=== PATIENT | female | born 1950 | race Caucasian/White ===

== ENCOUNTER → 2016-08-27 | Outpatient (CLI) | payer MEDICARE ==
--- NOTE | 2016-08-27 16:39 | MR ---
MRI CERVICAL SPINE: CLINICAL HISTORY: Right-sided Cervical spine radiculopathy per order. Neck and right upper extremity pain and numbness per order. TECHNIQUE: Multiplanar, multisequence imaging of the cervical spine is performed without IV contrast. COMPARISON: None. FINDINGS: Sagittal images of the cervical spine show the craniocervical junction to appear within nor mal limits. The cervical and upper thoracic spinal cord is normal in course, caliber, and signal. V ertebral alignment is anatomic. The vertebral body heights are normal. There is mild to moderate mul tilevel disc space narrowing most prominent at C4-C5 through C6-C7 levels. Moderate multilevel spurri ng is seen most prominent anteriorly. Posterior disc herniation and spur disc complexes are effacing anterior thecal sac at C3-C4 through C6-C7 level. There are heterogeneous endplate changes most promi nent left C5-C6 level on sagittal image 5 with increased T1 and T2 signal consistent with Modic type II degenerative change. Axial images show the C2-C3 level to appear within normal limits. Axial images at C3-C4 level show posterior spur disc complex effacing bilateral anterolateral thecal sac and causing severe right and moderate appear left-sided neural foraminal narrowing near axial aziza ge 47. Axial images at C4-C5 level show uncovertebral facet degenerative changes with posterior broad disc b ulge effacing anterior thecal sac and causing advanced left and moderate to advanced right-sided neur al foraminal narrowing. Axial images at C5-C6 level show broad-based left paracentral spur disc complex effacing anterolatera l thecal sac and causing advanced left-sided neural foraminal narrowing on axial image 31. Some ossif ic fusion at this level may be present. Right-sided neural foramen is patent. Axial images at C6-C7 level show broad-based left paracentral/foraminal disc protrusion effacing ante rolateral thecal sac and causing moderate to advanced left-sided neural foraminal narrowing. There is mild to moderate right-sided neural foraminal narrowing at this level identified. Axial images at C7-T1 level shows left paracentral disc protrusion mildly effacing anterior thecal sa c, bilateral neural foramina are felt patent. IMPRESSION: Multilevel degenerative changes in the cervical spine as detailed above with most pronoun francie findings C3-C4 through C6-C7 level noted.
== END | disposition home or self-care (01) ==
LOC: RADMRIMAIN 15:03
PROVIDERS: ATTEND Family Medicine
DX: M47.22 Other spondylosis with radiculopathy, cervical region (principal)
CPT/HCPCS: 72141

== ENCOUNTER → 2017-04-20 | Outpatient (CLI) | payer MEDICARE ==
--- NOTE | 2017-04-20 14:18 | MM ---
Reason for exam: screening (asymptomatic). Last mammogram was performed 1 year and 2 months ago. History: Patient is postmenopausal. Physical Findings: A clinical breast exam by your physician is recommended on an annual basis and results should be correlated with mammographic findings. MG Screening Mammo w CAD Bilateral CC and MLO view(s) were taken. Prior study comparison: February 04, 2016, bilateral MG screening mammo w CAD. January 25, 2014, bilateral MG screening mammo w CAD. There are scattered fibroglandular densities. There is no discrete abnormality. No significant changes when compared with prior studies. ASSESSMENT: Negative, BI-RAD 1 RECOMMENDATION: Routine screening mammogram of both breasts in 1 year.
--- NOTE | 2017-04-21 09:03 | BD ---
EXAMINATION TYPE: MG DEXA axial skeleton. DATE OF EXAM: 04/20/2017 COMPARISON: NONE CLINICAL HISTORY: Z13.820 osteoporosis Height: 5 FT 8 IN Weight: 237 FRAX RISK QUESTIONS: Alcohol (3 or more units per day): NO Family History (Parent hip fracture): NO Glucocorticoids (More than 3mos): NO (Ex: prednisone, prednisolone, methylprednisolone, dexamethasone, and hydrocortisone). History of Fracture in Adulthood: NO Secondary Osteoporosis: 1. Type 1 Diabetes: NO 2. Hyperthyroidism: NO 3. Menopause before 45: NO 4. Malnutrition: NO 5. Chronic liver disease: NO Rheumatoid Arthritis: NO Current Tobacco Use: NO RISK FACTORS HISTORY OF: Active: NO Postmenopausal woman: AGE 49 Take estrogen and/or progesterone medications: NO LONGER How long: TOOK FOR 3 YEARS MEDICATIONS: Thyroid Medications: YES Which medication: LEVOTHYROXINE How Long: OVER 10 YEARS Additional Medications: PREVACHOL,LEVOTHYROXINE, BENICAR , Additional History: EXAM MEASUREMENTS: Bone mineral densitometry was performed using the [employer] System. Bone mineral density as measured about the Lumbar spine is: ----- L1-L4(G/cm2): 1.697 T Score Values are as follows: ----- L2: 3.8 ----- L3: 4.1 ----- L4: 5.7 ----- L1-L4: 4.3 Bone mineral density has: INCREASED 5.0 % since study of: 2011 Bone mineral density about the R hip (g/cm2): 0.983 Bone mineral density about the L hip (g/cm2): 0.915 T Score values are as follows: -----R Neck: -0.4 -----L Neck: -0.9 -----R Total: 0.3 -----L Total: 0.7 Bone mineral density has: DECREASED -3.2 % since study of: 2011 IMPRESSION: No evidence for osteoporosis or osteopenia. NOTE: T-SCORE=SD OF THE YOUNG ADULT MEAN.
== END | disposition home or self-care (01) ==
LOC: RADMAMWWP 08:11
PROVIDERS: ATTEND Obstetrics & Gynecology
DX: Z12.31 Encounter for screening mammogram for malignant neoplasm of breast (principal); Z13.820 Encounter for screening for osteoporosis
CPT/HCPCS: 77067; 77080

== ENCOUNTER → 2018-09-25 | Outpatient (CLI) | payer MEDICARE ==
--- NOTE | 2018-09-26 11:04 | MM ---
Reason for exam: screening (asymptomatic). Last mammogram was performed 1 year and 5 months ago. History: Patient is postmenopausal. Physical Findings: A clinical breast exam by your physician is recommended on an annual basis and results should be correlated with mammographic findings. MG Screening Mammo w CAD Bilateral CC and MLO view(s) were taken. Prior study comparison: April 20, 2017, bilateral MG screening mammo w CAD. February 04, 2016, bilateral MG screening mammo w CAD. The breast tissue is almost entirely fat. No significant changes when compared with prior studies. ASSESSMENT: Negative, BI-RAD 1 RECOMMENDATION: Routine screening mammogram of both breasts in 1 year.
== END | disposition home or self-care (01) ==
LOC: RADMAMWWP 15:27
PROVIDERS: ATTEND Obstetrics & Gynecology
DX: Z12.31 Encounter for screening mammogram for malignant neoplasm of breast (principal)
CPT/HCPCS: 77067

== ENCOUNTER → 2020-11-10 | Outpatient (CLI) | payer MEDICARE | END | disposition home or self-care (01) | LOC: LABPAT 14:30 | PROVIDERS: ATTEND Orthopaedic Surgery | DX: Z01.812 Encounter for preprocedural laboratory examination (principal); M16.11 Unilateral primary osteoarthritis, right hip; Z22.322 Carrier or suspected carrier of Methicillin resistant Staphylococcus aureus | CPT/HCPCS: 87070 ==

== ENCOUNTER 2020-11-17 08:43 | Day surgery (SDC) | payer MEDICARE ==
[2020-11-12 14:27] VITALS: BMI 34.7
--- NOTE | 2020-11-16 12:25 | HP ---
HISTORY AND PHYSICAL REASON FOR ADMISSION: Surgery 11/17/2020 HISTORY OF PRESENT ILLNESS: Jana Mejia is a 69-year-old patient seen with symptomatic right hip osteoarthritis. We discussed options for treatment. She elected to proceed with direct anterior right total hip arthroplasty. Consent was obtained, clearance was provided by Dr. Luis Alberto Dang. PAST MEDICAL HISTORY: Hypertension, hyperlipidemia. PAST SURGICAL HISTORY: Tubal ligation. MEDICATIONS: Pravastatin, omeprazole, levothyroxine. ALLERGIES: PENICILLIN. SOCIAL HISTORY: She denies tobacco use. PHYSICAL EXAMINATION: Evaluation of the right hip: Diffuse tenderness. Limited range of motion. Severe pain. Positive hip impingement sign. Straight leg raise negative. Distal neurovascular exam is intact. RADIOGRAPHS: Right hip radiographs revealed severe osteoarthritic changes. IMPRESSION: 1. Right hip osteoarthritis. 2. Hypertension. 3. Hyperlipidemia. 4. Hypothyroidism. PLAN: Direct anterior right total hip arthroplasty. Surgery scheduled for 11/17/2020. MMODL / IJN: [id number] /
[~2020-11-17 08:43] MED LIST: ACETAMINOPHEN TAB 500 MG TAB PO PRN; DEXAMETHASONE SOD PHOSPHATE 4 MG/ML 1 ML VIAL IV ONE; HYDROmorphone 0.5 MG/0.5 ML SYRINGE IVP PRN; LACTATED RINGERS 1,000 ML IV SCH; LIDOCAINE 1% (10MG/ML) FOR IV START INTRADERMA PRN; MELOXICAM 7.5 MG TAB PO PRN; MIDAZOLAM 2 MG/2 ML VIAL IV PRN; ONDANSETRON 4 MG/2 ML VIAL IVP ONE; ROPIVACAINE/EPI/CLONIDINE/KET 50 ML SYRINGE MISCELLANE PRN; TRANEXAMIC ACID 1,000 MG in SODIUM CHLORIDE 0.9% 100 ML IVPB PRN
[2020-11-17] MEDS ORDERED: SODIUM CHLORIDE 0.9% 100 ML BAG ONE (10:03)
[2020-11-17] MEDS ORDERED: fentaNYL (PF) 50 MCG/ML 2 ML AMP ONE (10:03)
[2020-11-17] MEDS ORDERED: MIDAZOLAM 2 MG/2 ML VIAL ONE (10:03)
[2020-11-17] MEDS ORDERED: PROPOFOL 10 MG/ML 20 ML VIAL IV ONE (10:03)
[2020-11-17] MEDS ORDERED: TRANEXAMIC ACID 1,000 MG/10 ML VIAL ONE (10:03)
[2020-11-17] MEDS ORDERED: KETOROLAC 15 MG/ML 1 ML VIAL ONE (10:03)
[2020-11-17] MEDS ORDERED: KETAMINE 10 MG/ML 20 ML VIAL ONE (10:03)
[2020-11-17] MEDS ORDERED: ceFAZolin 1,000 MG in SODIUM CHLORIDE 0.9% 1,000 ML IRRIGATION ONE (10:36)
[2020-11-17] MEDS ORDERED: HYDROmorphone 0.5 MG/0.5 ML SYRINGE IVP PRN ×2 (11:36)
[2020-11-17] MEDS ORDERED: hydrOXYzine pamoate 25 MG CAP PO PRN (11:36)
[2020-11-17] MEDS ORDERED: NALOXONE 0.4 MG/ML 1 ML VIAL IV PRN (11:36)
[2020-11-17] MEDS ORDERED: HYDROmorphone 0.2 MG/1 ML SYRINGE IVP PRN (11:36)
[2020-11-17] MEDS ORDERED: ONDANSETRON 4 MG/2 ML VIAL IVP PRN (11:36)
[2020-11-17] MEDS ORDERED: HYDROcodone/APAP 5-325MG 1 EACH TAB PO PRN (11:36)
--- NOTE | 2020-11-17 11:36 | P.OP ---
Date of Procedure: 11/17/20 Preoperative Diagnosis: Right hip osteoarthritis Postoperative Diagnosis: Right hip osteoarthritis Procedure(s) Performed: Direct anterior right total hip arthroplasty Implants: 1. Depuy Corail KA size 11 standard collar press-fit femoral stem 2. Depuy pinnacle 58 mm multiple hole press-fit acetabular shell 3. Depuy pinnacle neutral polyethylene acetabular liner 36 mm ID 58 mm OD 4. Biolox delta ceramic femoral head 8.5 36 mm Anesthesia: local, spinal Surgeon: Chris Carrasco Supervisor Spring Up #1: Howie Beltrán Estimated Blood Loss (ml): 95 Pathology: other (Femoral head) Condition: stable Disposition: PACU Indications for Procedure: 69-year-old patient seen with symptomatic right hip osteoarthritis. After treatment options were discussed, she elected to proceed with direct anterior right total hip arthroplasty Operative Findings: See description of procedure Description of Procedure: The patient was taken to the operative suite. Patient underwent a spinal a nesthetic by the department of anesthesia. Patient was then transferred to the [place] table. Patient was given preoperative IV antibiotics and TXA. Both lower extremities were placed in standard leg spars. The hip was then prepped and draped in the normal sterile orthopedic fashion. A standard anterior incision was made beginning 3 cm lateral and 1 cm distal to the ASIS extending 10 cm. Dissection was then carried down through the subcutaneous soft tissues down to the fascia overlying the tensor fascia marty. An incision was now made through the fascia. Careful dissection was taken down exposing the tensor fascia marty muscle. A Cobra retractor was now placed along the medial femoral neck and a second one along the lateral femoral neck. The venous circumflex vessels were now identified, cauterized and clipped. We identified the anterior hip capsule. An incision was made through the hip capsule along the lateral border. I performed a partial anterior capsulectomy. Retractors were now placed around the femoral neck itself. A femoral neck cut was now made with a sagittal saw. It was completed with an osteotome at the lateral neck area. The femoral head was now removed without difficulty. The extremity was now rotated to 60 of external rotation. It was locked in position. Residual labrum was now debrided out. Serial reaming was performed of the acetabulum while Jason FOX assisted holding an anterior retractor for exposure. Once we reached the appropriate size and a trial was position and fit nicely. The appropriate size was now chosen opened and made available. It was introduced into the acetabulum without difficulty. The C-arm/fluoroscopy was now brought into the operative field. We made sure we had a true AP pelvic view. We now under direct C- arm/fluoroscopy introduced into the acetabular component with appropriate version and inclination. I held the cup in appropriate position well Jason FOX used a mallet to seat the acetabular component. I noted the component now to be well seated and stable. Acetabular cup introduce her was removed. The C-arm was pulled back. An appropriate liner was introduced and clicked into position. It was felt to be stable. At this point retractors were removed. The extremity was now placed into 140 external rotation with no traction. The leg was now dropped to the ground and adducted. Appropriate retractors were now positioned along the proximal femur. We also placed our femoral look into position. Additional capsular releasing was performed to gain access to the proximal femur. We now used a box osteotome. A canal finder was now utilized. Serial broaching was now performed with the assistance of Jason FOX tapping the broaches down with a mallet while held the broach in appropriate rotation and position. This was done until we reached the appropriate size with good overall rotational stability. Appropriate calcar planing was performed. A trial head/neck was placed into position. The hip was now reduced. The C- arm/fluoroscopy was brought back into the operative field. I obtained an AP pelvis demonstrating reasonable leg length alignment. The trial components appear to be adequately sized and positioned The C-arm/fluoroscopy was pulled back. Retractors were repositioned and the hip was dislocated. The leg was again taken down to the ground and adducted. Appropriate retractors were repositioned as well as the femoral hook. All trial components were removed. The femoral implant was opened along with the femoral head. The femoral implant was introduced on the appropriate handle into our pre-broached area. I held the component position well Jason FOX used a mallet to seat the femoral component. The femoral component was now noted to be well seated and stable. The femoral head was introduced with good positioning and fixation noted. Retractors were now removed. The hip was now reduced. There appeared be good positioning of the hip confirmed on intraoperative fluoroscopy. Spot films were obtained to document this. A second gram of TXA was given. The deep and superficial soft tissues were infiltrated with local analgesic. Bipolar cautery had been utilized intermittently through the procedure for hemostasis. The wound was irrigated copiously with pulse lavage mechanical irrigation. The fascia was repaired with Vicryl suture. The subcutaneous soft tissues were repaired in layers with Vicryl suture. The skin was approximated with pernio/Dermabond. Sterile dressings were applied. Patient was then awakened, transferred to a bed and taken to recovery in stable condition. Jason FOX assisted with the complex procedure.
[2020-11-17] MEDS ORDERED: LACTATED RINGERS 1,000 ML IV ONE (11:37)
--- NOTE | 2020-11-17 12:03 | XR ---
Fluoroscopy INDICATION: Pain FINDINGS: Fluoroscopy time: Not recorded Images obtained: 1. IMPRESSIONS: 1. Documentation of fluoroscopy.
--- NOTE | 2020-11-17 12:24 | FL ---
Fluoroscopy INDICATION: Pain FINDINGS: Fluoroscopy time: 24 seconds. Images obtained: 0. IMPRESSIONS: 1. Documentation of fluoroscopy.
[2020-11-17] MEDS: LACTATED RINGERS 1,000 ML IV SCH (17:09)
[2020-11-17] MEDS: HYDROcodone/APAP 5-325MG 1 EACH TAB PO PRN ×2 (17:59→23:53)
[2020-11-17 19:23] VITALS: PULSE 58
[2020-11-17 19:28] LABS: Glucose,Whole Blood 232 mg/dL (75-99)
[2020-11-17] MEDS ORDERED: SENNOSIDES-DOCUSATE SODIUM 1 EACH TAB PO SCH (21:00)
[2020-11-17] MEDS ORDERED: SODIUM CHLORIDE 0.9% 1,000 ML IV SCH (21:30)
[2020-11-17] MEDS ORDERED: SODIUM CHLORIDE 0.9% 500 ML 250 ML IV ONE (22:38)
[2020-11-18] MEDS: LACTATED RINGERS 1,000 ML IV SCH (02:54)
[2020-11-18] MEDS ORDERED: LEVOTHYROXINE 75 MCG TAB PO SCH (06:30)
[2020-11-18 08:02] VITALS: BP 113/73; RESP 16; TEMP 97.6
[2020-11-18] MEDS ORDERED: MELOXICAM 7.5 MG TAB PO SCH (09:00)
[2020-11-18] MEDS ORDERED: ENOXAPARIN 40 MG/0.4 ML SYRINGE SQ SCH (09:00)
[2020-11-18] MEDS ORDERED: FAMOTIDINE 20 MG TAB PO SCH (09:00)
[2020-11-18] MEDS: HYDROcodone/APAP 5-325MG 1 EACH TAB PO PRN (09:04)
--- NOTE | 2020-11-18 10:47 | P.DS ---
Providers Date of admission: 11/17/2020 Expected date of discharge: 11/18/20 Attending physician: Chris Carrasco Consults: 11/17/20 11:36 Consult Physician Routine Consulting Provider: Luis Alberto Dang Reason/Comments: Medical management Do you want consulting provider notified?: Yes Primary care physician: Luis Alberto Dang Hospital Course: Date of admission: 11/17/2020 Date of discharge: 11/18/2020 Admission diagnosis: Right hip osteoarthritis Discharge diagnosis: Same Attending physician: Dr. Carrasco Surgical procedures: Right total hip arthroplasty Brief history: Patient is a 69-year-old female with a history of progressive primary right hip osteoarthritis. At this point patient has failed conservative treatment measures and has opted to proceed with a elective right total hip arthroplasty. Hospital course: Details of patient's surgery can be found in operative report. Patient tolerated the procedure well and was subsequently transported to orthopedic floor. Patient's orthopeidc and medical care was provided daily. Patient had daily laboratory tests performed for evaluation of overall blood counts. Patient had daily physical therapy to include strengthening range of motion as well as education with walker ambulation. Patient was treated with Lovenox for their postoperative DVT prophylaxis during their inpatient stay. Patient was noted to have a relatively uneventful postoperative course. Patient reported satisfactory pain control with oral pain medications by postoperative day 1. Patient showed satisfactory progress with physical therapy. Patient moved steadily through the program and had no difficulty meeting the goals by postoperative day 1. Given patient's otherwise satisfactory course and having met physical therapy goals, plan is to discharge patient home on postoperative day 1. Discharge condition/disposition: Patient will be discharged home in stable condition. Discharge medications: Instructions are given on resumption of patient's normal daily medications per primary care recommendation, in addition patient will be prescribed Union 5 mg/325 mg; Lyrica 75 mg; aspirin 81 mg twice a day. Discharge instructions: 1. Wound care and infection precautions, keep incision dry and covered while showering, no lotions, creams, moisturizers. No soaking, tubs, pools, hottubs. Do not scrub over the incision. 2. Weight-bear as tolerated with walker / cane until follow-up. 3. Ice and elevate when necessary. Do not exceed 20 minutes per hour with ice pack. 4. Utilize compression sleeve until seen at first follow up appointment. 5. Visiting nursing care. 6. Home physical therapy. 7. Pain meds and anticoagulants per prescription. 8. Pain medication has potential to cause constipation. Increase oral fluid and fiber intake. Contact primary care provider if you have not had a bowel movement within 48 hours after discharge 9. No anti-inflammatory medication until discussed at first post operative visit, this including Motrin, Aleve, Mobic, Diclofenac. 10. Follow up in office at 2 weeks postop with Jason Beltrán PA-C / Daniel Tirado PA-C 11. Follow up with your primary care doctor 7-10 days after discharge. 12. Contact [facility] with any questions, . Assessment: Right hip osteoarthritis Procedures: Right total hip arthroplasty Patient Condition at Discharge: Good Plan - Discharge Summary Discharge Rx Participant: Yes New Discharge Prescriptions: New Sennosides-Docusate Sodium [Senokot-S] 2 each PO HS tab Aspirin [Adult Low Dose Aspirin EC] 81 mg PO BID #60 tablet. Pregabalin [Lyrica] 75 mg PO BID #21 cap HYDROcodone/APAP 5-325MG [Union 5-325] 1 tab PO Q6HR PRN #21 tab PRN Reason: Pain Continue Levothyroxine Sodium [Synthroid] 75 mcg PO DAILY Olmesartan/Hydrochlorothiazide [Benicar Hct 20-12.5 mg Tablet] 1 each PO 1000 #0 No Action Pravastatin Sodium [Pravachol] 40 mg PO HS Discharge Medication List Levothyroxine Sodium [Synthroid] 75 mcg PO DAILY 11/12/20 [History] Pravastatin Sodium [Pravachol] 40 mg PO HS 11/12/20 [History] Aspirin [Adult Low Dose Aspirin EC] 81 mg PO BID #60 tablet. 11/18/20 [Rx] HYDROcodone/APAP 5-325MG [Union 5-325] 1 tab PO Q6HR PRN #21 tab 11/18/20 [Rx] Olmesartan/Hydrochlorothiazide [Benicar Hct 20-12.5 mg Tablet] 1 each PO 1000 #0 11/18/20 [Rx] Pregabalin [Lyrica] 75 mg PO BID #21 cap 11/18/20 [Rx] Sennosides-Docusate Sodium [Senokot-S] 2 each PO HS tab 11/18/20 [Rx] Follow up Appointment(s)/Referral(s): [facility], [NON-STAFF] - As Needed Luis Alberto Dang DO [Primary Care Provider] - 1 Week Howie Beltrán PAC [PHYSICIAN FORENSIC TECHNICIAN] - 12/03/20 3:10 pm Activity/Diet/Wound Care/Special Instructions: Orthopedic Discharge Instructions: 1. Wound care and infection precautions, keep incision dry and covered while showering, no lotions, creams, moisturizers. No soaking, pools, hot tubs. Do not scrub over incision. 2. Weight-bear as tolerated with walker / cane until follow-up. 3. Ice and elevate when necessary. Do not exceed 20 minutes per hour with ice pack. 4. Utilize compression sleeve until seen at first follow up appointment. 5. Pain meds and anticoagulants per prescription. 6. Pain medication has potential to cause constipation. Increase oral fluid and fiber intake. Contact primary care provider if you have not had a bowel movement within 48 hours after discharge. 7. No anti-inflammatory medication until discussed at first post operative visit, this including Motrin, Aleve, Mobic, Diclofenac. 8. Follow up in office at 2 weeks postop with Jason Beltrán PA-C / Daniel Tirado PA-C 9. Follow up with your primary care doctor 7-10 days after discharge. 10. Contact [facility] with any questions, . Discharge Disposition: HOME WITH HOME HEALTH SERVICES
[2020-11-18 11:11] LABS: Basophils # (A) 0.01 X 10*3/uL (0.00-0.10); Basophils % (A) 0.1 %; Eosinophils # (A) 0.02 X 10*3/uL (0.04-0.35); Eosinophils % (A) 0.2 %; Lymphocytes # (A) 1.29 X 10*3/uL (0.90-5.00); Lymphocytes % (A) 10.3 %; MCH 31.2 pg (27.0-32.0); MCHC 32.4 g/dL (32.0-37.0); MCV 96.3 fL (80.0-97.0); Mean Platelet Volume 10.2 fL (9.5-12.2); Monocytes # (A) 1.09 X 10*3/uL (0.20-1.00); Monocytes % (A) 8.7 %; Neutrophils # (A) 10.01 X 10*3/uL (1.80-7.70); Neutrophils % (A) 80.2 %; Platelet Count 233 X 10*3/uL (140-440); RBC 3.53 X 10*6/uL (4.10-5.20); RDW 13.1 % (11.5-14.5); WBC 12.48 X 10*3/uL (4.50-10.00)
--- NOTE | 2020-11-18 12:54 | P.PN ---
Subjective Progress Note Date: 11/18/20 Principal diagnosis: Right hip osteoarthritis Patient seen at bedside this morning. Patient was seen resting in chair with legs elevated. Patient says she is in minimal pain in this morning. She says she worked with physical therapy; she said she was able to walk on the hallway and up-and-down a couple steps. Patient says she has not had bowel movement yet, however, she has been passing gas. Patient denies chest pain, fever, shortness of breath, nausea, vomiting, change in vision, loss of bowel/bladder control. Objective - Vital Signs Vital signs: Vital Signs Temp 97.6 F 11/18/20 08:00 Pulse 58 L 11/18/20 08:00 Resp 16 11/18/20 08:00 BP 113/73 11/18/20 08:00 Pulse Ox 95 11/18/20 08:00 Intake & Output 11/17/20 11/18/20 11/18/20 18:59 06:59 18:59 Intake Total 1411 Output Total 95 Balance 1316 Weight 105 kg Intake: IV 1251 Intake, IV Titration 160 Amount Lactated Ringers 1,000 ml 160 @ 80 mls/hr IV .[id number] [facility] Rx#:[id number] Output: Estimated Blood Loss 95 Other: Voiding Method Toilet Toilet - Exam Right hip: Incision is clean, dry, and intact. The silver foam tape is in good condition. There is minimal soft tissue swelling and ecchymosis surrounding the medial and lateral aspects of the incision. Calf is soft, no tenderness with palpation. Plantar flexion, dorsiflexion, EHL, FHL are intact. Sensory exam to light touch throughout the extremity is intact, dorsal pedis pulses 2+. - Labs CBC & Chem 7: 11/18/20 06:51 Labs: Abnormal Lab Results - Last 24 Hours (Table) 11/17/20 11/18/20 Range/Units 19:26 06:51 WBC 12.48 H (4.50-10.00) X 10*3/uL RBC 3.53 L (4.10-5.20) X 10*6/uL Hgb 11.0 L (12.0-15.0) g/dL Hct 34.0 L (37.2-46.3) % Immature Gran # 0.06 H (0.00-0.04) X 10*3/uL Neutrophils # 10.01 H (1.80-7.70) X 10*3/uL Monocytes # 1.09 H (0.20-1.00) X 10*3/uL Eosinophils # 0.02 L (0.04-0.35) X 10*3/uL POC Glucose (mg/dL) 232 H (75-99) mg/dL Assessment and Plan Assessment: Right hip osteoarthritis Plan: 1. Right hip osteoarthritis - right total hip arthroplasty performed yesterday, 11/17/2020. Patient stable this morning; plan for discharge home today 2. Appreciate medical management 3. Pain management - stable at this time. Going home with Larslan 5 mg/325 mg and Lyrica 75 mg 4. GI prophylaxis/ DVT prophylaxis - senna; lovenox; patient going home with aspirin 81 mg BID x 30 days 5. Encourage incentive spirometer use 6. PT/OT - weightbearing as tolerated with walker for assistance 7. Discharge planning - discharge home today Time with Patient: Less than 30
--- NOTE | 2020-11-18 15:20 | P.CONS ---
History of Present Illness - Reason for Consult Consult date: 11/18/20 Medical management HTN,GERDS Requesting physician: Chris Carrasco - Chief Complaint Right hip osteoarthritis - History of Present Illness This is 69-year-old female with past medical history of hypertension, gastroesophageal reflux disease, hypothyroidism ,right hip osteoarthritis, failed conservative treatment, status post elective right total hip arthroplasty. Tolerated procedure well. Last night stood up by herself, became lightheaded, nauseated, pale, with borderline hypotension. Received a 250 MLS bolus of saline, antihypertensives held, symptoms resolved. Vital signs stable this morning. Positive diet intake with no nausea or vomiting. Passing flatus. Pain controlled. Denies cough congestion, or chest pain. Vital signs stable. PT pending. Labs pending. Review of Systems ROS Statement: Those systems with pertinent positive or pertinent negative responses have been documented in the HPI. ROS Other: All systems not noted in ROS Statement are negative. Past Medical History Past Medical History: GERD/Reflux, Hyperlipidemia, Hypertension, Osteoarthritis (OA), Skin Disorder, Thyroid Disorder Additional Past Medical History / Comment(s): hx migraines, rosacea, History of Any Multi-Drug Resistant Organisms: None Reported Past Surgical History: Tubal Ligation Additional Past Surgical History / Comment(s): D&C x2, 2 growths removed from e yelid, Past Anesthesia/Blood Transfusion Reactions: No Reported Reaction Past Psychological History: No Psychological Hx Reported Smoking Status: Never smoker Past Alcohol Use History: None Reported Past Drug Use History: None Reported - Past Family History Mother Family Medical History: Cancer Additional Family Medical History / Comment(s): brain Brother(s) Family Medical History: Cancer Additional Family Medical History / Comment(s): brain,bladder Medications and Allergies Home Medications Medication Instructions Recorded Confirmed Type Levothyroxine Sodium [Synthroid] 75 mcg PO DAILY 11/12/20 11/12/20 History Pravastatin Sodium [Pravachol] 40 mg PO HS 11/12/20 11/12/20 History Aspirin [Adult Low Dose Aspirin EC] 81 mg PO BID #60 tablet. 11/18/20 Rx HYDROcodone/APAP 5-325MG [[place] 1 tab PO Q6HR PRN #21 tab 11/18/20 Rx 5-325] Olmesartan/Hydrochlorothiazide 1 each PO 1000 #0 11/18/20 11/12/20 Rx [Benicar Hct 20-12.5 mg Tablet] Pregabalin [Lyrica] 75 mg PO BID 14 Days #21 cap 11/18/20 Rx Sennosides-Docusate Sodium 2 each PO HS tab 11/18/20 Rx [Senokot-S] Allergies Allergy/AdvReac Type Severity Reaction Status Date / Time Penicillins Allergy Rash/Hives Verified 11/17/20 09:12 Sulfa (Sulfonamide Allergy eye would Verified 11/17/20 09:12 Antibiotics) not heal with sulfa eye drops Physical Exam Vitals: Vital Signs Temp Pulse Pulse Resp BP BP Pulse Ox 11/18/20 08:00 97.6 F 58 L 16 113/73 95 11/18/20 02:00 97.7 F 58 L 96/59 93 L 11/17/20 19:23 58 L 17 92/56 11/17/20 19:19 97.8 F 58 L 17 88/53 94 L 11/17/20 16:00 98.2 F 60 18 139/84 97 11/17/20 15:04 55 L 16 101/51 94 L 11/17/20 14:00 56 L 16 99/53 94 L 11/17/20 13:30 59 L 16 107/52 94 L 11/17/20 13:01 58 L 16 99/54 94 L 11/17/20 12:30 56 L 16 99/55 94 L 11/17/20 12:15 52 L 16 91/47 95 11/17/20 12:00 57 L 16 92/48 92 L 11/17/20 11:49 97.4 F L 67 16 93/46 92 L 11/17/20 09:22 97.9 F 67 16 141/79 96 Intake and Output 11/17/20 11/18/20 11/18/20 22:59 06:59 14:59 Intake Total 160 Balance 160 Intake: Intake, IV Titration 160 Amount Lactated Ringers 1,000 ml 160 @ 80 mls/hr IV .[id number] [facility] Rx#:[id number] Other: Voiding Method Toilet Weight 105 kg PHYSICAL EXAM: VITAL SIGNS: As above GENERAL: Sitting up in bed, no acute distress HEENT: Conjunctivae normal. eyes normal. Oral mucosa moist NECK: No JVD. No thyroid enlargement. No LNs CARDIOVASCULAR: S1, S2 regular.. No murmur RESPIRATION: Breath sounds diminished in the bases. No rhonchi or crackles. No bronchial breathing. ABDOMEN: Soft, nontender . No guarding. no masses palpable. No ascites, No hepatosplenomegaly.Bowel sounds heard. EXT: Right hip dressing clean dry and intact, mild edema, calf nontender, soft, positive PT and DP pulses PSYCHIATRY: Alert and oriented X3, mood and affect normal. NERVOUS SYSTEM: Cranial N 2-12 grossly normal. Moves all 4 limbs. No focal deficits. Strength and sensation grossly intact. Skin: Warm and dry, no rash Lymphatic system. No LN neck axilla. Results CBC & Chem 7: 11/18/20 06:51 Labs: Abnormal Lab Results - Last 24 Hours (Table) 11/17/20 Range/Units 19:26 POC Glucose (mg/dL) 232 H (75-99) mg/dL Assessment and Plan Assessment: Right hip osteoarthritis, failed conservative treatment, status post right total hip arthroplasty Borderline hypotension, resolved. History of hypertension Hyperlipidemia Gastroesophageal reflux disease Hypothyroidism Plan: Continue current medication regime ,monitoring and symptomatic treatment. Pain management, DVT prophylaxis as per primary. Discharge planning in progress for today. Patient has been instructed to continue holding her Benicar HCT today and resume tomorrow. Maintain Senokot-S. Aggressive pulmonary toileting, incentive spirometer reinforced. Follow-up with PCP in one week. Thank you Dr. Carrasco for the consult. The impression and plan of care has been dictated as directed. : I performed a history and examination of this patient, discussed the same with the dictator. I agree with the dictator's note ,documented as a scribe. Any additional findings or plans will be noted.
[2020-11-18] MEDS ORDERED: PRAVASTATIN SODIUM 40 MG TAB PO SCH (21:00)
== END 2020-11-18 13:07 | disposition home health service (06) ==
LOC: OR 08:43 → 4SSUR 11:49 → OR 11-18 13:07
PROVIDERS: ATTEND Orthopaedic Surgery
DX: M16.11 Unilateral primary osteoarthritis, right hip (principal); E03.9 Hypothyroidism, unspecified; E78.5 Hyperlipidemia, unspecified; I10 Essential (primary) hypertension; K21.9 Gastro-esophageal reflux disease without esophagitis; Z79.899 Other long term (current) drug therapy; Z79.82 Long term (current) use of aspirin; Z88.0 Allergy status to penicillin; Z88.2 Allergy status to sulfonamides
CPT/HCPCS: 27130; 76000; 97161; 86900; 86901; 85025; 86850; 88300; 73501; 36415; J1100; J0690 ×3; J2405; J1650

== ENCOUNTER → 2021-04-01 | Outpatient (CLI) | payer MEDICARE ==
--- NOTE | 2021-04-06 13:34 | MM ---
Reason for exam: screening (asymptomatic). Last mammogram was performed 2 years and 6 months ago. History: Patient is postmenopausal. Physical Findings: A clinical breast exam by your physician is recommended on an annual basis and results should be correlated with mammographic findings. MG Screening Mammo w CAD Bilateral CC and MLO view(s) were taken. Prior study comparison: September 25, 2018, bilateral MG screening mammo w CAD. April 20, 2017, bilateral MG screening mammo w CAD. There are scattered fibroglandular densities. No significant changes when compared with prior studies. ASSESSMENT: Benign, BI-RAD 2 RECOMMENDATION: Routine screening mammogram of both breasts in 1 year.
== END | disposition home or self-care (01) ==
LOC: RADMAMWWP 10:04
PROVIDERS: ATTEND Family Medicine
DX: Z12.31 Encounter for screening mammogram for malignant neoplasm of breast (principal); Z78.0 Asymptomatic menopausal state
CPT/HCPCS: 77067

== ENCOUNTER → 2022-10-21 | Outpatient (CLI) | payer MEDICARE ==
[2022-10-22 02:46] LABS: Albumin 4.6 d/dL (3.8-4.9)
[2022-10-22 03:37] LABS: Cardiolipin Ab IgG Interp Negative (Negative); Cardiolipin Ab IgM Interp Negative (Negative); Cardiolipin IgA Antibody <2.0 U/mL; Cardiolipin IgM Antibody <1.5 U/mL
[2022-10-22 03:46] LABS: Hepatitis B Surface Antigen Nonreactive; Hepatitis C IgG Antibody Nonreactive
[2022-10-22 04:27] LABS: ALT 24 U/L (8-44); AST 21 U/L (13-35); Albumin 4.7 d/dL (3.8-4.9); Albumin/Globulin Ratio 1.96 Ratio (1.60-3.17); Alkaline Phosphatase 62 U/L (41-126); Blood Urea Nitrogen 20.4 mg/dL (9.0-27.0); C Reactive Protein <0.30 mg/dL (0.00-0.80); Calcium 10.6 mg/dL (8.7-10.3); Carbon Dioxide 25.6 mmol/L (21.6-31.8); Chloride 104 mmol/L (96-109); Creatine Kinase 172 U/L (26-186); Globulin 2.4 d/dL (1.6-3.3); Glucose 93 mg/dL (70-110); Potassium 4.3 mmol/L (3.5-5.5); Sodium 141 mmol/L (135-145); Total Bilirubin 0.6 mg/dL (0.3-1.2); Total Protein 7.1 d/dL (6.2-8.2); Uric Acid 5.6 mg/dL (2.9-7.7)
[2022-10-22 04:40] LABS: Cyclic Citrull Pep IgG Unit <1.5 U/mL (<=3.9); Cyclic Citrullinated Pep IgG Negative
[2022-10-22 05:15] LABS: Appearance,Urine Clear (Clear); Bilirubin,Urine Negative (Negative); Blood,Urine Negative (Negative); Color,Urine Yellow (Yellow); Ketones,Urine Negative (Negative); Nitrite,Urine Negative (Negative); PH, Urine 5.5; Specific Gravity,Urine 1.018 (1.001-1.030); Urobilinogen,Urine 0.2 E.U./DL
[2022-10-22 05:32] LABS: Bacteria,Urine 1+ (None Seen)
[2022-10-22 10:06] LABS: HLA B27 NEGATIVE
[2022-10-22 11:14] LABS: Angiotensin-1 Converting Enz. 41 U/L (8-52)
[2022-10-22 11:15] LABS: Aldolase 3.2 U/L (1.2-7.6)
[2022-10-22 11:51] LABS: Histone Antibody 0.2 UNITS (<1.0)
[2022-10-22 11:57] LABS: APTT 43 Sec(s) (<43); Dilute Russell Viper Venom 34 Sec(s) (<44)
[2022-10-22 13:59] LABS: C-ANCA <1:20 Titer (<1:20)
[2022-10-22 18:52] LABS: Gamma Globulin 0.88 d/dL (0.70-1.50)
== END | disposition home or self-care (01) ==
LOC: LABWHC1 14:17
PROVIDERS: ATTEND Internal Medicine Rheumatology
DX: R76.8 Other specified abnormal immunological findings in serum (principal)
CPT/HCPCS: 36415; 80053; 81001; 82085; 82164; 82306; 82550; 83516; 83520; 84165; 84550; 85613; 85652; 85730; 86038; 86140; 86147; 86160; 86200; 86225; 86235; 86255; 86334; 86803; 86812; 87340

== ENCOUNTER 2023-08-29 11:10 | Emergency (ER) | payer MEDICARE ==
--- NOTE | 2023-08-29 11:18 | ED ---
Upper Extremity HPI - General Stated Complaint: Laceration to R middle finger Time Seen by Provider: 08/29/23 11:17 Source: patient Mode of arrival: ambulatory Limitations: no limitations - History of Present Illness Initial Comments: 72-year-old female presented to ER with a chief complaint of finger injury. Patient reports she was working with an industrial sewing machine in her right middle finger accidentally got caught in the track. She reports it is near amputation. She denies any other injuries or complaints. Tetanus status unknown. She is not on blood thinners and reports bleeding is controlled at this time. - Related Data Home Medications Medication Instructions Recorded Confirmed Levothyroxine Sodium [Synthroid] 75 mcg PO DAILY 11/12/20 11/12/20 Pravastatin Sodium [Pravachol] 40 mg PO HS 11/12/20 11/12/20 Previous Rx's Medication Instructions Recorded Aspirin [Adult Low Dose Aspirin EC] 81 mg PO BID #60 tablet. 11/18/20 HYDROcodone/APAP 5-325MG [[place] 1 tab PO Q6HR PRN #21 tab 11/18/20 5-325] Olmesartan/Hydrochlorothiazide 1 each PO 1000 #0 11/18/20 [Benicar Hct 20-12.5 mg Tablet] Pregabalin [Lyrica] 75 mg PO BID 14 Days #21 cap 11/18/20 Sennosides-Docusate Sodium 2 each PO HS tab 11/18/20 [Senokot-S] Allergies Allergy/AdvReac Type Severity Reaction Status Date / Time Penicillins Allergy Rash/Hives Verified 08/29/23 11:21 Sulfa (Sulfonamide Allergy eye would Verified 08/29/23 11:21 Antibiotics) not heal with sulfa eye drops Review of Systems ROS Statement: Those systems with pertinent positive or pertinent negative responses have been documented in the HPI. ROS Other: All systems not noted in ROS Statement are negative. General Exam - General Exam Comments Initial Comments: Visual Physical Exam Vital signs reviewed General: Well-appearing, nontoxic, no acute distress. Head: Normocephalic, atraumatic Eyes: PERRLA, EOMI ENT: Airway patent Chest: Nonlabored breathing Skin: No visual rash, normal skin tone Neuro: Alert and oriented 3 Musculoskeletal: Deep laceration to third middle digit on the right. General appearance: alert, in no apparent distress Respiratory exam: Present: normal lung sounds bilaterally. Absent: respiratory distress, wheezes, rales, rhonchi, stridor Cardiovascular Exam: Present: regular rate, normal rhythm, normal heart sounds. Absent: systolic murmur, diastolic murmur, rubs, gallop, clicks Extremities exam: Present: other (Deep laceration to right third digit. Bleeding controlled. Sensation intact.) Neurological exam: Present: alert, oriented X3, CN II-XII intact Skin exam: Present: warm, dry, intact, normal color. Absent: rash Course Vital Signs 08/29/23 08/29/23 11:18 14:00 Temperature 97.6 F 98.1 F Pulse Rate 58 L 68 Respiratory 18 18 Rate Blood Pressure 87/58 110/68 O2 Sat by Pulse 96 97 Oximetry Procedures - Laceration Laceration #1 Consent Obtained: verbal consent Indication: laceration Site: upper extremity Size (cm): 4 Description: irregular Depth: involves tendon Anesthetic Used: lidocaine 1% Anesthesia Technique: nerve block Amount (mls): 6 Pre-repair: wound explored, irrigated extensively, deep structures intact Type of Sutures: nylon Size of Sutures: 4-0 Number of Sutures: 7 Technique: simple, interrupted Patient Tolerated Procedure: well, no complications Medical Decision Making - Medical Decision Making I performed the quick note portion of this chart. Electronically signed by Rosalba Nicolas PA-C Was pt. sent in by a medical professional or institution (RUDDY Cole, RN PRIMARY CARE, urgent care, hospital, or longterm...) When possible be specific @ -No Did you speak to anyone other than the patient for history (EMS, parent, family, police, friend...)? What history was obtained from this source @ -No Did you review nursing and triage notes (agree or disagree)? Why? @ -I reviewed and agree with nursing and triage notes Were old charts reviewed (outside hosp., previous admission, EMS record, old EKG, old radiological studies, urgent care reports/EKG's, longterm records)? Report findings @ -No old charts were reviewed Differential Diagnosis (chest pain, altered mental status, abdominal pain women, abdominal pain men, vaginal bleeding, weakness, fever, dyspnea, syncope, headache, dizziness, GI bleed, back pain, seizure, CVA, palpatations, mental health, musculoskeletal)? @ -Differential Musculoskeletal Muscular strain, contusion, ligament sprain, fracture, arthritis, septic arthritis, bursitis, cellulitis, muscle spasm, nerve compression, DVT, arterial occlusion, herpes zoster, electrolyte abnormality, tumor.... This is not meant to be in all inclusive list EKG interpreted by me (3pts min.). @ -None X-rays interpreted by me (1pt min.). @ -Right finger x-ray interpreted by me significant for comminuted fracture of the distal phalanx. CT interpreted by me (1pt min.). @ -None done U/S interpreted by me (1pt. min.). @ -None done What testing was considered but not performed or refused? (CT, X-rays, U/S, labs)? Why? @ -None What meds were considered but not given or refused? Why? @ -None Did you discuss the management of the patient with other professionals (professionals i.e. , PA, RN PRIMARY CARE, lab, RT, psych nurse, social science professor, ex chef, teacher, personnel officer, director of casework department)? Give summary @ -No Was smoking cessation discussed for >3mins.? @ -No Was critical care preformed (if so, how long)? @ -No Were there social determinants of health that impacted care today? How? (Homelessness, low income, unemployed, alcoholism, drug addiction, transportation, low edu. Level, literacy, decrease access to med. care, intermediate, rehab)? @ -No Was there de-escalation of care discussed even if they declined (Discuss DNR or withdrawal of care, Hospice)? DNR status @ -No What co-morbidities impacted this encounter? (DM, HTN, Smoking, COPD, CAD, Cancer, CVA, ARF, Chemo, Hep., AIDS, mental health diagnosis, sleep apnea, morbid obesity)? @ -None Was patient admitted / discharged? Hospital course, mention meds given and route, prescriptions, significant lab abnormalities, going to OR and other pertinent info. @ -Discharged. 73-year-old female presented to the ER with a chief complaint of right third digit injury. History and physical exam completed. Vitals stable. Patient in no signs of acute distress and non toxic appearing. Right upper extremity neurovascular intact. There is a deep laceration near amputation of the distal right third digit. Bleeding controlled. Due to concern of open fracture patient received IM Ancef and tetanus vaccination. X- rays obtained significant for comminuted fracture of the distal metadiaphyseal phalanx of right third digit. Digital block was performed for pain control. Laceration closed using 7 simple interrupted sutures. Patient tolerated procedure well. I discussed with patient about importance of following up with a hand surgeon, referral given. Strict return parameters discussed. Patient discharged in stable condition. Patient verbally expressed understanding and agreement with care plan. Case discussed with ED attending, Dr. Worrell. Undiagnosed new problem with uncertain prognosis? @ -No Drug Therapy requiring intensive monitoring for toxicity (Heparin, Nitro, Insulin, Cardizem)? @ -No Were any procedures done? @ -Yes Diagnosis/symptom? @ -Open fracture/laceration Acute, or Chronic, or Acute on Chronic? @ -Acute Uncomplicated (without systemic symptoms) or Complicated (systemic symptoms)? @ -Uncomplicated Side effects of treatment? @ -No Exacerbation, Progression, or Severe Exacerbation? @ -No Poses a threat to life or bodily function? How? (Chest pain, [place], [place], pneumonia, PE, COPD, DKA, ARF, appy, cholecystitis, CVA, Diverticulitis, Homicidal, Suicidal, threat to staff... and all critical care pts) @ -Possibly, open fracture can lead to osteomyelitis which can be life- threatening. - Radiology Data Radiology results: report reviewed, image reviewed Disposition Clinical Impression: Open fracture of distal phalanx Disposition: HOME SELF-CARE Condition: Stable Instructions (If sedation given, give patient instructions): Hand Fracture (ED) Additional Instructions: Follow-up with hand surgeon in the next 1 to 2 days. Referral has been given. You may take [id number] Tylenol and Motrin for pain control. Keep area clean and dry. Return to the ER for any new or worsening concerns. Is patient prescribed a controlled substance at d/c from ED?: No Referrals: Luis Alberto Dang DO [Primary Care Provider] - 1-2 days Loyd Christian DO [Doctor of Osteopathic Medicine] - 1-2 days Time of Disposition: 13:11
[2023-08-29] MEDS: LIDOCAINE 1% INJ 10MG/ML (20 ML MDV) SQ ONE (11:42)
[2023-08-29] MEDS: DIPH,PERTUS(ACELL)TETVAC-LF 0.5 ML VIAL IM ONE (12:14)
[2023-08-29] MEDS: ceFAZolin 1,000 MG VIAL (IM USE) IM STA (12:15)
[2023-08-29 12:21] VITALS: RESP 18
--- NOTE | 2023-08-29 12:47 | XR ---
EXAMINATION TYPE: XR finger RT DATE OF EXAM: 08/29/2023 COMPARISON: None HISTORY: Sewing machine industrial accident TECHNIQUE: 3 view right middle finger FINDINGS: There is comminuted fracture distal phalanx. Soft tissue injury is present. No radiopaque f oreign bodies are identified. IMPRESSION: 1. Comminuted fracture distal metadiaphyseal phalanx third digit right hand.
[2023-08-29 14:21] VITALS: BP 110/68; PULSE 68; TEMP 98.1
== END 2023-08-29 14:00 | disposition home or self-care (01) ==
LOC: EC 11:10
DX: S62.632A Displaced fracture of distal phalanx of right middle finger, initial encounter for closed fracture (principal); Z88.0 Allergy status to penicillin; Z88.2 Allergy status to sulfonamides; Z23 Encounter for immunization; W31.89XA Contact with other specified machinery, initial encounter
CPT/HCPCS: 73140; 90715; 12002; 99283; 96372; 90471; J0690; J2001

== ENCOUNTER 2023-09-01 07:13 | Day surgery (SDC) | payer MEDICARE ==
--- NOTE | 2023-08-30 20:33 | P.HPOR ---
History of Present Illness H&P Date: 08/30/23 Subjective: This is a 72 year old female that presents today for initial evaluation regarding a right middle finger injury that occurred Aug 29 2023 when she was using a industrial sewing machine at home and her finger got stuck in the belt. She was seen at the emergency department the day of her injury where her wounds were irrigated and her lacerations were loosely approximated. She has been in a finger splint since the day of the injury. Physical Examination: RUE: AIN/PIN/Radial/Ulnar/Median motor intact. Radial/Ulnar/Median SILT. 2+/4 Radial/Ulnar pulses palpated. 5/5 APB, 5/5 FDI. 3. Half centimeter oblique laceration from the level of the middle phalanx to the distal phalanx. There is complete nail plate avulsion off the proximal one third of the nail bed. Large defect in the eponychial fold. FDP and terminal extensor tendon intact against resistance. Rotational deformity of the distal phalanx present. Imaging: X-rays of the right middle finger 2V taken in the office today demonstrates a displaced distal phalanx fracture with rotational deformity. Impression: 1.) Right middle finger distal phalanx fracture, open. 2.) Right middle finger nailbed laceration. 3.) Right middle finger nail plate avulsion. Plan: Diagnosis and treatment options were discussed with the patient. She has a rotational deformity of her middle finger as well as a nail plate avulsion. I recommend surgical intervention in the form of a right middle finger distal phalanx open reduction internal fixation with a temporary k-wire fixation, nail plate removal and nailbed repair under local anesthesia. Risks and benefits of surgery including bleeding, infection, damage to surrounding tissue, need for further surgery, residual numbness were discussed and the patient wished to go forward with surgery. New dressing is applied to the finger. The patient was agreeable with this plan. -Loyd Christian DO Orthopedic Hand/Upper Extremity Surgeon Medications and Allergies Home Medications Medication Instructions Recorded Confirmed Type Levothyroxine Sodium [Synthroid] 75 mcg PO DAILY 11/12/20 11/12/20 History Pravastatin Sodium [Pravachol] 40 mg PO HS 11/12/20 11/12/20 History Aspirin [Adult Low Dose Aspirin EC] 81 mg PO BID #60 tablet. 11/18/20 Rx HYDROcodone/APAP 5-325MG [[place] 1 tab PO Q6HR PRN #21 tab 11/18/20 Rx 5-325] Olmesartan/Hydrochlorothiazide 1 each PO 1000 #0 11/18/20 11/12/20 Rx [Benicar Hct 20-12.5 mg Tablet] Pregabalin [Lyrica] 75 mg PO BID 14 Days #21 cap 11/18/20 Rx Sennosides-Docusate Sodium 2 each PO HS tab 11/18/20 Rx [Senokot-S] Allergies Allergy/AdvReac Type Severity Reaction Status Date / Time Penicillins Allergy Rash/Hives Verified 08/29/23 11:21 Sulfa (Sulfonamide Allergy eye would Verified 08/29/23 11:21 Antibiotics) not heal with sulfa eye drops Physical Examination Osteopathic Statement: *. No significant issues noted on an osteopathic structural exam other than those noted in the History and Physical/Consult.
[~2023-09-01 07:13] MED LIST changes: -ACETAMINOPHEN TAB 500 MG TAB PO PRN; -DEXAMETHASONE SOD PHOSPHATE 4 MG/ML 1 ML VIAL IV ONE; -HYDROmorphone 0.5 MG/0.5 ML SYRINGE IVP PRN; -LACTATED RINGERS 1,000 ML IV SCH; -LIDOCAINE 1% (10MG/ML) FOR IV START INTRADERMA PRN; -MELOXICAM 7.5 MG TAB PO PRN; -MIDAZOLAM 2 MG/2 ML VIAL IV PRN; -ONDANSETRON 4 MG/2 ML VIAL IVP ONE; +Pre Op ABX Message 1 EACH MISC MISCELLANE ONE; -ROPIVACAINE/EPI/CLONIDINE/KET 50 ML SYRINGE MISCELLANE PRN; -TRANEXAMIC ACID 1,000 MG in SODIUM CHLORIDE 0.9% 100 ML IVPB PRN
[2023-09-01] MEDS: LACTATED RINGERS 1,000 ML IV ONE (07:41)
[2023-09-01 08:17] VITALS: TEMP 97.1
[2023-09-01] MEDS: LIDOCAINE 2% INJ 20 MG/ML SQ ONE ×2 (08:57→09:10)
[2023-09-01] MEDS ORDERED: fentaNYL (PF) 50 MCG/ML 2 ML AMP ONE (09:00)
[2023-09-01] MEDS ORDERED: MIDAZOLAM 2 MG/2 ML VIAL ONE (09:00)
[2023-09-01] MEDS ORDERED: LIDOCAINE 1% INJ 10MG/ML (20 ML MDV) ONE (09:00)
[2023-09-01] MEDS ORDERED: PROPOFOL 10 MG/ML 20 ML VIAL IV ONE (09:00)
[2023-09-01] MEDS: BUPIVACAINE (PF) 0.5% 30 ML VIAL SQ ONE ×2 (09:05→09:10)
[2023-09-01] MEDS: BACITRACIN OINT 1 EACH PACKET TOPICAL ONE (09:49)
[2023-09-01 10:14] VITALS: BP 149/87; PULSE 59; RESP 15
--- NOTE | 2023-09-01 11:56 | P.OP ---
Date of Procedure: 09/01/23 Preoperative Diagnosis: 1.)Right middle finger open distal phalanx fracture 2.) Right middle finger nailbed laceration 3.) Right middle finger nailplate partial avulsion Postoperative Diagnosis: 1.)Right middle finger open distal phalanx fracture 2.) Right middle finger nailbed laceration 3.) Right middle finger nailplate partial avulsion Procedure(s) Performed: 1.)Right middle finger open reduction of displaced distal phalanx fracture 2.) Right middle finger nailbed laceration repair 3.) Right middle finger nailplate removal 4.) Right middle finger 4cm laceration repair Anesthesia: MAC Surgeon: Loyd Christian Estimated Blood Loss (ml): 10 Pathology: none sent Condition: stable Disposition: PACU Description of Procedure: This is a 72 year old female who sustained a right middle finger partial amputation with an open distal phalanx fracture after having her hand get caught in an industrial sewing machine belt, she presents today for surgical intervention. Risks and benefits of surgery were discussed with the patient including bleeding, damage to surrounding tissue, infection, need for further surgery as well as risks of anesthesia including pulmonary embolism and even and the patient wished to proceed with surgical intervention. The patient was seen in the pre-operative area by myself. Consent and H&P were completed and updated. The correct extremity was marked in the pre-operative area by myself and all other questions were answered. Operative Narrative: The patient was brought to the operating room by the department of anesthesia. They remained on the portable stretcher and a rolling hand table was brought to the side of the operative extremity. Pre-operative time out was performed indicating the correct patient, procedure and laterality. All in the room agreed. Pre-operative antibiotics were given prior to skin incision. The patient was then drifted off to sleep by the department of anesthesia. Digital block was performed with 7cc's of 0.5% Lidocaine and 1% lidocaine in a 50:50 mixture. A nonsterile tourniquet was then applied to the operative extremity and the right upper extremity was then prepped and draped in normal sterile fashion. The operative extremity was the exsanguinated with an esmarch bandage and the tourniquet was inflated to 250mmHg. Previous sutures were removed that were placed by the ED were removed. There was an oblique 4cm laceration from the level of the middle finger middle phalanx to the distal phalanx with proximal avulsion of the nail plate with tearing of the eponychial fold. The nail plate was atraumatically removed with a freer elevator to reveal a transverse germinal matrix nail bed laceration. The tip of the finger was only being held on by a small 1cm skin bridge ulnarly. The FDP tendon was identified and found to be intact. The distal phalanx fracture was v isualized through the open nail bed laceration and fracture edges were debrided of fibrous tissue. The distal phalanx fracture was then able to be directly reduced. Longitudinal incisions were made on each side of the eponychial fold to gain better access to the germinal matrix nail bed laceration. The germinal matrix nail bed laceration was then repaired with several interrupted 5-0 Vicryl sutures in a tension-free manner. Attention was then brought the skin laceration. This was repaired with several 4-0 chromic sutures. The previously removed nail plate was then trimmed and cleaned with a freer elevator and sterile saline. The newly trimmed nail plate was then inserted underneath the eponychial fold to act as a splint for the distal phalanx fracture. The wound was then irrigated. The fingertip was then covered with Adaptic, bacitracin, 4 x 4's, and a tube gauze dressing. Tourniquet was let down and the hand had immediate perfusion. The patient was then woken by the department of anesthesia and transferred to PACU in stable condition. Loyd Christian D.O. Orthopedic Hand/Upper Extremity Surgeon
== END 2023-09-01 10:42 | disposition home or self-care (01) ==
LOC: OR 07:13
PROVIDERS: ATTEND Orthopaedic Surgery Hand Surgery
DX: S62.632A Displaced fracture of distal phalanx of right middle finger, initial encounter for closed fracture (principal); Z79.890 Hormone replacement therapy; Z79.82 Long term (current) use of aspirin; Z79.899 Other long term (current) drug therapy; Z88.0 Allergy status to penicillin; X58.XXXA Exposure to other specified factors, initial encounter; Z88.2 Allergy status to sulfonamides; Z88.1 Allergy status to other antibiotic agents
CPT/HCPCS: 26765; J2001 ×2; J2250; J3010; J2704; J0665